=== PATIENT | female | born 1970 | race Caucasian/White ===

== ENCOUNTER 2016-10-09 18:42 | Emergency (ER) | payer MEDICAID ==
[2016-08-16 12:25] VITALS: BMI 61.2
[~2016-10-09 18:42] MED LIST: ADVAIR 250/501 DISK INH; CLEOCIN HCL150 MG PO; COMBIVENT INH14.7 GM INH; CYCLOBENZAPRINE10 MG PO; DALIRESP500 MCG PO; DIFLUCAN100 MG PO; DUONEB 2.5-0.5 M3 ML UPD; FLAGYL500 MG PO; HYDROCODONE-APA1 TAB PO; IPRAT-ALBUT 0.5-3 ML INH; LASIX20 MG PO; LEVAQUIN500 MG PO; LEVAQUIN750 MG PO; LIORESAL 10 MG10 MG PO; MUCINEX600 MG OR; MUCINEX600 MG PO; NICODERM C1 PATCH .1 TRANSDERM; NORCO 10/325 TA1 TA1 PO; NUCYNTA50 MG PO; PEPCID20 MG PO; PREDNISONE50 MG PO; PROVENTIL/2.5 MG/3 M INH; QUESTRAN PACK4 G/PKT PO; SINGULAIR10 MG PO; STERAPRED 5MG 125 MG PO; STERAPRED DS 1210 MG PO; XANAX0.5 MG; XANAX1 MG PO; ZESTRIL20 MG PO; ZITHROMAX500 MG PO; ZOFRAN ODT4 MG/UDTAB PO
[2016-10-09 19:35] LABS: BASOPHILS 0.3 % (0.0-2.0); HEMATOCRIT 41.3 % (36.0-48.0); HEMOGLOBIN 13.5 g/dL (12-16); IMMATURE GRANULOCYTES 0.5 % (0-5); LYMPHOCYTES 28.3 % (15-50); MCH 28.5 pg (26.0-34.0); MCHC 32.7 g/dL (31.0-37.0); MCV 87.3 fL (80.0-100.0); MONOCYTES 14.3 % (2-11); NEUTROPHILS 53.6 % (40-80); PLATELET COUNT 244 10x3/uL (130-400); RBC 4.73 10x6/uL (4.00-5.40); WBC 7.7 10x3/uL (4.8-10.8)
[2016-10-09 19:50] LABS: ALBUMIN 3.4 g/dL (3.4-5.0); ANION GAP 9.4 mmol/L (8-16); BILIRUBIN - TOTAL 0.22 mg/dL (0.2-1.3); CALCIUM 8.7 mg/dL (8.5-10.1); CARBON DIOXIDE 29.9 mmol/L (21.0-32.0); CREATININE - SERUM 0.9 mg/dL (0.6-1.3); POTASSIUM - SERUM 4.3 mmol/L (3.5-5.1); PROTEIN - SERUM 6.5 g/dL (6.4-8.2)
== END 2016-10-09 20:46 | disposition home or self-care (01) ==
LOC: D.ER 18:42
PROVIDERS: Emergency Medicine
DX: J44.1 Chronic obstructive pulmonary disease with (acute) exacerbation (principal)

== ENCOUNTER 2016-10-16 16:38 | Emergency (ER) | payer SELFPAY ==
[2016-08-16 12:25] VITALS: BMI 61.2
[2016-10-16 17:30] LABS: BASOPHILS 0.3 % (0.0-2.0); EOSINOPHILS 3.2 % (0-7); HEMATOCRIT 41.9 % (36.0-48.0); HEMOGLOBIN 13.7 g/dL (12-16); IMMATURE GRANULOCYTES 0.5 % (0-5); LYMPHOCYTES 23.7 % (15-50); MCH 28.7 pg (26.0-34.0); MCHC 32.7 g/dL (31.0-37.0); MCV 87.7 fL (80.0-100.0); MEAN PLATELET VOLUME 10.7 fL (7.4-10.4); MONOCYTES 10.8 % (2-11); NEUTROPHILS 61.5 % (40-80); PLATELET COUNT 226 10x3/uL (130-400); RBC 4.78 10x6/uL (4.00-5.40); RDW 15.4 % (11.5-14.5); WBC 11.5 10x3/uL (4.8-10.8)
[2016-10-16 18:10] LABS: ALBUMIN 3.2 g/dL (3.4-5.0); ALKALINE PHOSPHATASE 99 U/L (46-116); ALT (SGPT) 35 U/L (10-68); AMYLASE - SERUM 24 U/L (25-115); BILIRUBIN - TOTAL 0.28 mg/dL (0.2-1.3); CALC OSMOLALITY 280 mosm/kg (275-300); CALCIUM 8.4 mg/dL (8.5-10.1); CARBON DIOXIDE 27.7 mmol/L (21.0-32.0); CHLORIDE - SERUM 104 mmol/L (98-107); CREATININE - SERUM 0.8 mg/dL (0.6-1.3); GLUCOSE 91 mg/dL (74-106); LIPASE 132 U/L (73-393); POTASSIUM - SERUM 4.5 mmol/L (3.5-5.1); PROTEIN - SERUM 6.6 g/dL (6.4-8.2); SODIUM 140 mmol/L (136-145); UREA NITROGEN 18 mg/dL (7-18); eGFR NON AFRICAN AMERICAN 82 mL/min (90-120)
== END 2016-10-16 18:56 | disposition home or self-care (01) ==
LOC: D.ER 16:38
PROVIDERS: Emergency Medicine
DX: K52.9 Noninfective gastroenteritis and colitis, unspecified (principal); F17.200 Nicotine dependence, unspecified, uncomplicated; J44.9 Chronic obstructive pulmonary disease, unspecified

== ENCOUNTER 2016-10-17 23:29 | Emergency (ER) | payer MEDICAID ==
[2016-08-16 12:25] VITALS: BMI 61.2
[2016-10-18 00:34] LABS: APPEARANCE HAZY (CLEAR); COLOR YELLOW (YELLOW); LEUKOCYTE ESTERASE TRACE (NEGATIVE); NITRITE NEGATIVE (NEGATIVE); PH 5.5 (5.0-6.0)
[2016-10-18 00:35] LABS: BILIRUBIN NEGATIVE (NEGATIVE); GLUCOSE NEGATIVE (NEGATIVE); KETONE NEGATIVE (NEGATIVE); PROTEIN TRACE mg/dL (NEGATIVE); UROBILINOGEN NORMAL (NORMAL)
[2016-10-18 00:43] LABS: BACTERIA MANY /hpf (NONE SEEN); MUCUS <1+ /lpf (NONE SEEN); RED CELLS - URINE 0-5 /hpf (0-5)
[2016-10-18 01:03] LABS: UDS - AMPHET POSITIVE QUAL (NEGATIVE); UDS - BARB NEGATIVE QUAL (NEGATIVE); UDS - BENZO NEGATIVE QUAL (NEGATIVE); UDS - COCAINE NEGATIVE QUAL (NEGATIVE); UDS - METH NEGATIVE QUAL (NEGATIVE); UDS - OPIATE NEGATIVE QUAL (NEGATIVE); UDS - PCP NEGATIVE QUAL (NEGATIVE); UDS - THC POSITIVE QUAL (NEGATIVE)
== END 2016-10-18 01:13 | disposition home or self-care (01) ==
LOC: D.ER 23:29
PROVIDERS: Family Medicine
DX: K52.9 Noninfective gastroenteritis and colitis, unspecified (principal); J44.9 Chronic obstructive pulmonary disease, unspecified; F17.200 Nicotine dependence, unspecified, uncomplicated

== ENCOUNTER 2016-11-12 15:40 | Emergency (ER) | payer MEDICAID ==
[2016-08-16 12:25] VITALS: BMI 61.2
[2016-11-12 18:59] LABS: BASOPHILS 0.3 % (0.0-2.0); EOSINOPHILS 2.7 % (0-7); HEMATOCRIT 43.6 % (36.0-48.0); HEMOGLOBIN 14.1 g/dL (12-16); IMMATURE GRANULOCYTES 0.5 % (0-5); LYMPHOCYTES 27.8 % (15-50); MCH 28.3 pg (26.0-34.0); MCHC 32.3 g/dL (31.0-37.0); MCV 87.6 fL (80.0-100.0); MEAN PLATELET VOLUME 10.6 fL (7.4-10.4); MONOCYTES 13.6 % (2-11); NEUTROPHILS 55.1 % (40-80); PLATELET COUNT 261 10x3/uL (130-400); RBC 4.98 10x6/uL (4.00-5.40); RDW 16.1 % (11.5-14.5); WBC 10.3 10x3/uL (4.8-10.8)
[2016-11-12 19:24] LABS: ALBUMIN 3.7 g/dL (3.4-5.0); ALKALINE PHOSPHATASE 153 U/L (46-116); ALT (SGPT) 63 U/L (10-68); AMYLASE - SERUM 24 U/L (25-115); BILIRUBIN - TOTAL 0.25 mg/dL (0.2-1.3); CALC OSMOLALITY 271 mosm/kg (275-300); CALCIUM 9.2 mg/dL (8.5-10.1); CARBON DIOXIDE 27.2 mmol/L (21.0-32.0); CHLORIDE - SERUM 101 mmol/L (98-107); CREATININE - SERUM 0.6 mg/dL (0.6-1.3); GLUCOSE 89 mg/dL (74-106); LIPASE 109 U/L (73-393); POTASSIUM - SERUM 4.6 mmol/L (3.5-5.1); PROTEIN - SERUM 7.1 g/dL (6.4-8.2); SODIUM 136 mmol/L (136-145); UREA NITROGEN 16 mg/dL (7-18); eGFR NON AFRICAN AMERICAN > 90 mL/min (90-120)
== END 2016-11-12 20:36 | disposition home or self-care (01) ==
LOC: D.ER 15:40
PROVIDERS: Physician Assistant
DX: A08.4 Viral intestinal infection, unspecified (principal); J44.9 Chronic obstructive pulmonary disease, unspecified; K21.9 Gastro-esophageal reflux disease without esophagitis; I10 Essential (primary) hypertension; F17.200 Nicotine dependence, unspecified, uncomplicated

== ENCOUNTER 2017-02-15 11:20 | Emergency (ER) | payer MEDICAID ==
[2016-08-16 12:25] VITALS: BMI 61.2
== END 2017-02-15 15:43 | disposition home or self-care (01) ==
LOC: D.ER 11:20
DX: S82.302A Unspecified fracture of lower end of left tibia, initial encounter for closed fracture (principal); X58.XXXA Exposure to other specified factors, initial encounter; Y93.89 Activity, other specified; Y92.89 Other specified places as the place of occurrence of the external cause

== ENCOUNTER 2017-04-09 15:15 | Emergency (ER) | payer MEDICAID ==
[2016-08-16 12:25] VITALS: BMI 61.2
[2017-04-09 16:10] LABS: UDS - AMPHET POSITIVE QUAL (NEGATIVE); UDS - BARB NEGATIVE QUAL (NEGATIVE); UDS - BENZO NEGATIVE QUAL (NEGATIVE); UDS - COCAINE NEGATIVE QUAL (NEGATIVE); UDS - METH NEGATIVE QUAL (NEGATIVE); UDS - OPIATE NEGATIVE QUAL (NEGATIVE); UDS - PCP NEGATIVE QUAL (NEGATIVE); UDS - THC POSITIVE QUAL (NEGATIVE)
[2017-04-09 16:26] LABS: APPEARANCE HAZY (CLEAR); BILIRUBIN NEGATIVE (NEGATIVE); COLOR YELLOW (YELLOW); GLUCOSE NEGATIVE (NEGATIVE); KETONE NEGATIVE (NEGATIVE); LEUKOCYTE ESTERASE 2+ (NEGATIVE); NITRITE NEGATIVE (NEGATIVE); PROTEIN NEGATIVE (NEGATIVE); SPECIFIC GRAVITY 1.015 (1.005-1.020); UROBILINOGEN NORMAL (NORMAL)
[2017-04-09 16:27] LABS: RED CELLS - URINE 0-5 /hpf (0-5)
[2017-04-09 16:28] LABS: BACTERIA MODERATE /hpf (NONE SEEN)
== END 2017-04-09 15:35 | disposition home or self-care (01) ==
LOC: D.ER 15:15
PROVIDERS: Physician Assistant
DX: M54.5 Low back pain (principal); F17.200 Nicotine dependence, unspecified, uncomplicated

== ENCOUNTER 2017-06-02 19:29 | Emergency (ER) | payer MEDICAID ==
[2016-08-16 12:25] VITALS: BMI 61.2
== END 2017-06-02 21:06 | disposition home or self-care (01) ==
LOC: D.ER 19:29
DX: J06.9 Acute upper respiratory infection, unspecified (principal); J44.9 Chronic obstructive pulmonary disease, unspecified

== ENCOUNTER 2017-07-10 06:44 | Emergency (ER) | payer MEDICAID ==
[2016-08-16 12:25] VITALS: BMI 61.2
== END 2017-07-10 08:45 | disposition home or self-care (01) ==
LOC: D.ER 06:44
DX: S93.402A Sprain of unspecified ligament of left ankle, initial encounter (principal); X58.XXXA Exposure to other specified factors, initial encounter; Y93.89 Activity, other specified; Y92.029 Unspecified place in mobile home as the place of occurrence of the external cause; S39.012A Strain of muscle, fascia and tendon of lower back, initial encounter; J44.9 Chronic obstructive pulmonary disease, unspecified; F17.200 Nicotine dependence, unspecified, uncomplicated

== ENCOUNTER 2017-07-28 19:16 | Emergency (ER) | payer MEDICAID ==
[2016-08-16 12:25] VITALS: BMI 61.2
[2017-07-28 21:47] LABS: BASOPHILS 0.3 % (0-2); HEMATOCRIT 44.4 % (36.0-48.0); HEMOGLOBIN 14.7 g/dL (12-16); IMMATURE GRANULOCYTES 0.1 % (0-5); LYMPHOCYTES 27.6 % (15-50); MCH 29.5 pg (26.0-34.0); MCHC 33.1 g/dL (31.0-37.0); MEAN PLATELET VOLUME 10.4 fL (7.4-10.4); MONOCYTES 9.7 % (2-11); NEUTROPHILS 59.3 % (40-80); PLATELET COUNT 299 10x3/uL (130-400); RBC 4.99 10x6/uL (4.00-5.40); RDW 15.1 % (11.5-14.5)
[2017-07-28 22:22] LABS: ALBUMIN 3.7 g/dL (3.4-5.0); ANION GAP 12.2 mmol/L (8-16); BILIRUBIN - TOTAL 0.45 mg/dL (0.2-1.3); CALCIUM 9.3 mg/dL (8.5-10.1); CARBON DIOXIDE 29.2 mmol/L (21.0-32.0); POTASSIUM - SERUM 4.4 mmol/L (3.5-5.1)
== END 2017-07-28 23:12 | disposition home or self-care (01) ==
LOC: D.ER 19:16
PROVIDERS: Physician Assistant
DX: R51 Headache (principal); Z86.79 Personal history of other diseases of the circulatory system; J20.9 Acute bronchitis, unspecified; J44.1 Chronic obstructive pulmonary disease with (acute) exacerbation

== ENCOUNTER 2017-07-29 17:49 | Emergency (ER) | payer MEDICAID ==
[2016-08-16 12:25] VITALS: BMI 61.2
== END 2017-07-29 23:32 | disposition home or self-care (01) ==
LOC: D.ER 17:49
DX: G43.909 Migraine, unspecified, not intractable, without status migrainosus (principal)

== ENCOUNTER 2017-09-04 14:38 | Emergency (ER) | payer MEDICAID ==
[2016-08-16 12:25] VITALS: BMI 61.2
== END 2017-09-04 16:35 | disposition home or self-care (01) ==
LOC: D.ER 14:38
DX: J06.9 Acute upper respiratory infection, unspecified (principal); F17.200 Nicotine dependence, unspecified, uncomplicated; I10 Essential (primary) hypertension

== ENCOUNTER 2017-11-09 11:59 | Emergency (ER) | payer MEDICAID ==
[2016-08-16 12:25] VITALS: BMI 61.2
[2017-11-09 13:08] LABS: BASOPHILS 0.2 % (0-2); EOSINOPHILS 3.2 % (0-7); HEMATOCRIT 42.8 % (36.0-48.0); HEMOGLOBIN 13.8 g/dL (12-16); IMMATURE GRANULOCYTES 0.4 % (0-5); LYMPHOCYTES 21.4 % (15-50); MCH 28.8 pg (26.0-34.0); MCHC 32.2 g/dL (31.0-37.0); MCV 89.2 fL (80.0-100.0); MEAN PLATELET VOLUME 10.1 fL (7.4-10.4); MONOCYTES 12.8 % (2-11); PLATELET COUNT 248 10x3/uL (130-400); WBC 9.1 10x3/uL (4.8-10.8)
[2017-11-09 13:21] LABS: ALBUMIN 3.3 g/dL (3.4-5.0); ALKALINE PHOSPHATASE 113 U/L (46-116); ALT (SGPT) 38 U/L (10-68); BILIRUBIN - TOTAL 0.42 mg/dL (0.2-1.3); CALC OSMOLALITY 277 mosm/kg (275-300); CARBON DIOXIDE 30.1 mmol/L (21.0-32.0); CHLORIDE - SERUM 104 mmol/L (98-107); CREATININE - SERUM 0.7 mg/dL (0.6-1.3); GLUCOSE 94 mg/dL (74-106); POTASSIUM - SERUM 4.6 mmol/L (3.5-5.1); PROTEIN - SERUM 7.5 g/dL (6.4-8.2); SODIUM 139 mmol/L (136-145); UREA NITROGEN 13 mg/dL (7-18); eGFR NON AFRICAN AMERICAN > 90 mL/min (90-120)
== END 2017-11-09 14:33 | disposition home or self-care (01) ==
LOC: D.ER 11:59
PROVIDERS: Emergency Medicine
DX: J44.1 Chronic obstructive pulmonary disease with (acute) exacerbation (principal); F17.200 Nicotine dependence, unspecified, uncomplicated

== ENCOUNTER 2017-11-15 20:24 | Emergency (ER) | payer MEDICAID | END 2017-11-16 00:37 | disposition home or self-care (01) | LOC: D.ER 20:24 | DX: J44.1 Chronic obstructive pulmonary disease with (acute) exacerbation (principal); I10 Essential (primary) hypertension; F17.200 Nicotine dependence, unspecified, uncomplicated ==

== ENCOUNTER 2017-12-04 14:37 | Emergency (ER) | payer MEDICAID ==
[2016-08-16 12:25] VITALS: BMI 61.2
== END 2017-12-04 17:00 | disposition home or self-care (01) ==
LOC: D.ER 14:37
DX: S09.90XA Unspecified injury of head, initial encounter (principal); W19.XXXA Unspecified fall, initial encounter; Y93.89 Activity, other specified; Y92.89 Other specified places as the place of occurrence of the external cause; F17.200 Nicotine dependence, unspecified, uncomplicated

== ENCOUNTER 2017-12-14 21:39 | Emergency (ER) | payer MEDICAID ==
[2016-08-16 12:25] VITALS: BMI 61.2
== END 2017-12-15 01:18 | disposition home or self-care (01) ==
LOC: D.ER 21:39
DX: M54.5 Low back pain (principal); W18.2XXA Fall in (into) shower or empty bathtub, initial encounter; Y93.E1 Activity, personal bathing and showering; Y92.012 Bathroom of single-family (private) house as the place of occurrence of the external cause; J44.9 Chronic obstructive pulmonary disease, unspecified; I10 Essential (primary) hypertension; F17.200 Nicotine dependence, unspecified, uncomplicated

== ENCOUNTER 2017-12-26 15:29 | Emergency (ER) | payer MEDICAID ==
[2016-08-16 12:25] VITALS: BMI 61.2
[2017-12-26 16:25] LABS: PRO BNP 58 pg/mL (0-125)
[2017-12-26 16:29] LABS: TROPONIN-I < 0.017 ng/mL (0.000-0.060)
== END 2017-12-26 18:10 | disposition home or self-care (01) ==
LOC: D.ER 15:29
PROVIDERS: Emergency Medicine
DX: J44.1 Chronic obstructive pulmonary disease with (acute) exacerbation (principal); F17.200 Nicotine dependence, unspecified, uncomplicated

== ENCOUNTER 2018-01-06 22:04 | Inpatient (IN) | payer MEDICAID ==
[~2018-01-06] VITALS: Ht 157.5 cm; Wt 154.5 kg
[2018-01-06 22:59] LABS: BASOPHILS 0.3 % (0-2); EOSINOPHILS 3.2 % (0-7); HEMATOCRIT 41.2 % (36.0-48.0); HEMOGLOBIN 13.5 g/dL (12-16); IMMATURE GRANULOCYTES 0.3 % (0-5); LYMPHOCYTES 33.4 % (15-50); MCH 29.1 pg (26.0-34.0); MCHC 32.8 g/dL (31.0-37.0); MCV 88.8 fL (80.0-100.0); MEAN PLATELET VOLUME 10.3 fL (7.4-10.4); MONOCYTES 12.3 % (2-11); NEUTROPHILS 50.5 % (40-80); PLATELET COUNT 223 10x3/uL (130-400); RBC 4.64 10x6/uL (4.00-5.40); RDW 15.9 % (11.5-14.5); WBC 7.8 10x3/uL (4.8-10.8)
[2018-01-06 23:15] LABS: ALBUMIN 3.3 g/dL (3.4-5.0); ALKALINE PHOSPHATASE 104 U/L (46-116); ALT (SGPT) 64 U/L (10-68); BILIRUBIN - TOTAL 0.42 mg/dL (0.2-1.3); CALC OSMOLALITY 277 mosm/kg (275-300); CALCIUM 8.9 mg/dL (8.5-10.1); CARBON DIOXIDE 27.4 mmol/L (21.0-32.0); CHLORIDE - SERUM 103 mmol/L (98-107); CREATININE - SERUM 0.7 mg/dL (0.6-1.3); GLUCOSE 98 mg/dL (74-106); POTASSIUM - SERUM 4.4 mmol/L (3.5-5.1); PROTEIN - SERUM 7.4 g/dL (6.4-8.2); SODIUM 140 mmol/L (136-145); UREA NITROGEN 9 mg/dL (7-18); eGFR NON AFRICAN AMERICAN > 90 mL/min (90-120)
[2018-01-06 23:31] LABS: AMYLASE - SERUM 20 U/L (25-115); LIPASE 88 U/L (73-393)
[2018-01-07] VITALS (8 sets, daily range): BP systolic 123–162; BP diastolic 63–88; Ht 157.5 cm; Wt 154.5 kg
[2018-01-07 01:50] LABS: APPEARANCE CLOUDY (CLEAR); BILIRUBIN NEGATIVE (NEGATIVE); COLOR YELLOW (YELLOW); GLUCOSE NEGATIVE (NEGATIVE); KETONE NEGATIVE (NEGATIVE); NITRITE NEGATIVE (NEGATIVE); PROTEIN NEGATIVE (NEGATIVE); UROBILINOGEN NORMAL (NORMAL)
[2018-01-07 01:52] LABS: BACTERIA MANY /hpf (NONE SEEN); EPITHELIAL CELLS 0-5 /hpf (0-5); MUCUS <1+ /lpf (NONE SEEN); RED CELLS - URINE 0-5 /hpf (0-5)
[2018-01-07] MEDS ORDERED: AMITRIPTYLINE100 MG PO (02:52)
[2018-01-07] MEDS ORDERED: CELEXA40 MG PO (02:52)
[2018-01-07] MEDS ORDERED: PROVENTIL/2.5 MG/3 M INH (02:53)
[2018-01-07 14:13] LABS: UDS - AMPHET POSITIVE QUAL (NEGATIVE); UDS - BARB NEGATIVE QUAL (NEGATIVE); UDS - BENZO NEGATIVE QUAL (NEGATIVE); UDS - COCAINE NEGATIVE QUAL (NEGATIVE); UDS - OPIATE POSITIVE QUAL (NEGATIVE); UDS - PCP NEGATIVE QUAL (NEGATIVE); UDS - THC POSITIVE QUAL (NEGATIVE)
[2018-01-08 04:00] VITALS: BP 156/94
[2018-01-08 04:36] LABS: BASOPHILS 0.1 % (0-2); EOSINOPHILS 0 % (0-7); HEMATOCRIT 41.5 % (36.0-48.0); HEMOGLOBIN 13.3 g/dL (12-16); IMMATURE GRANULOCYTES 0.7 % (0-5); LYMPHOCYTES 7.9 % (15-50); MCH 28.8 pg (26.0-34.0); MCV 89.8 fL (80.0-100.0); MEAN PLATELET VOLUME 10.5 fL (7.4-10.4); MONOCYTES 2.3 % (2-11); RBC 4.62 10x6/uL (4.00-5.40); RDW 15.4 % (11.5-14.5)
[2018-01-08 04:50] LABS: PLATELET COUNT 268 10x3/uL (130-400); WBC 12.8 10x3/uL (4.8-10.8)
[2018-01-08 04:59] LABS: CALCIUM 9.1 mg/dL (8.5-10.1); CARBON DIOXIDE 28.9 mmol/L (21.0-32.0); CHLORIDE - SERUM 103 mmol/L (98-107); CREATININE - SERUM 0.8 mg/dL (0.6-1.3); MAGNESIUM - SERUM 2.3 mg/dL (1.8-2.4); POTASSIUM - SERUM 4.6 mmol/L (3.5-5.1); SODIUM 139 mmol/L (136-145); eGFR NON AFRICAN AMERICAN 81 mL/min (90-120)
[2018-01-08 05:00] LABS: CALC OSMOLALITY 282 mosm/kg (275-300); GLUCOSE 154 mg/dL (74-106); UREA NITROGEN 18 mg/dL (7-18)
[2018-01-08 08:41] VITALS: BP 134/60
[2018-01-08 11:46] VITALS: BP 135/75
[2018-01-08 16:11] VITALS: BP 133/77
[2018-01-08 16:59] LABS: CKMB 0.4 U/L (0.0-3.6); CREATINE KINASE 23 UL (21-215); TROPONIN-I < 0.017 ng/mL (0.000-0.060)
[2018-01-08 20:00] VITALS: BP 188/92
[2018-01-08 23:43] LABS: CREATINE KINASE 8 UL (21-215)
[2018-01-08 23:44] LABS: TROPONIN-I < 0.017 ng/mL (0.000-0.060)
[2018-01-09] VITALS: BP 127/53
[2018-01-09 04:00] VITALS: BP 163/70
[2018-01-09 05:06] LABS: CREATINE KINASE 11 UL (21-215)
[2018-01-09 05:12] LABS: TROPONIN-I < 0.017 ng/mL (0.000-0.060)
[2018-01-09 08:18] VITALS: BP 193/96
[2018-01-09] MEDS ORDERED: PROTONIX40 MG PO (09:46)
[2018-01-09] MEDS ORDERED: LEVAQUIN750 MG PO (09:46)
[2018-01-09] MEDS ORDERED: NICODERM C1 PATCH .1 TRANSDERM (09:46)
[2018-01-09] MEDS ORDERED: STERAPRED DS 1010 MG PO (09:47)
== END 2018-01-09 11:29 | disposition home or self-care (01) | DRG 189 ==
LOC: D.ER 22:04 → D.MS 01-07 01:15
PROVIDERS: Family Medicine; Internal Medicine Nephrology; Nurse Practitioner Family
DX: J96.21 Acute and chronic respiratory failure with hypoxia (principal); J44.1 Chronic obstructive pulmonary disease with (acute) exacerbation; Z68.44 Body mass index [BMI] 60.0-69.9, adult; F17.203 Nicotine dependence unspecified, with withdrawal; N39.0 Urinary tract infection, site not specified; I10 Essential (primary) hypertension; K21.9 Gastro-esophageal reflux disease without esophagitis; F20.9 Schizophrenia, unspecified; F31.9 Bipolar disorder, unspecified; F41.9 Anxiety disorder, unspecified; E66.01 Morbid (severe) obesity due to excess calories

== ENCOUNTER 2018-03-13 14:26 | Emergency (ER) | payer MEDICAID ==
[~2018-03-13] VITALS: Ht 157.5 cm; Wt 159.1 kg
[~2018-03-13 14:26] MED LIST changes: +AMITRIPTYLINE100 MG PO; +CELEXA40 MG PO; +PROTONIX40 MG PO; +STERAPRED DS 1010 MG PO
[2018-03-13 14:48] VITALS: Ht 157.5 cm; Wt 159.1 kg
[2018-03-13 17:29] VITALS: BP 150/71
== END 2018-03-13 17:13 | disposition home or self-care (01) ==
LOC: D.ER 14:26
DX: R51 Headache (principal); M54.12 Radiculopathy, cervical region; G43.909 Migraine, unspecified, not intractable, without status migrainosus; I10 Essential (primary) hypertension; J44.9 Chronic obstructive pulmonary disease, unspecified

== ENCOUNTER 2018-04-08 17:56 | Emergency (ER) | payer MEDICAID ==
[~2018-04-08] VITALS: Ht 157.5 cm; Wt 159.1 kg
[2018-04-08 18:00] VITALS: Ht 157.5 cm; Wt 159.1 kg
[2018-04-08] MEDS ORDERED: BUPROPION HCL150 M1 PO (18:03)
[2018-04-08] MEDS ORDERED: ALBUTEROL0.63 MG/3 INH (18:03)
[2018-04-08] MEDS ORDERED: DIFLUCAN100 MG PO (18:38)
[2018-04-08 18:44] LABS: BASOPHILS 0.2 % (0-2); EOSINOPHILS 2.4 % (0-7); HEMATOCRIT 40.4 % (36.0-48.0); HEMOGLOBIN 13.4 g/dL (12-16); IMMATURE GRANULOCYTES 0.4 % (0-5); LYMPHOCYTES 27.1 % (15-50); MCH 28.8 pg (26.0-34.0); MCHC 33.2 g/dL (31.0-37.0); MCV 86.7 fL (80.0-100.0); MEAN PLATELET VOLUME 10.2 fL (7.4-10.4); MONOCYTES 9.8 % (2-11); NEUTROPHILS 60.1 % (40-80); PLATELET COUNT 269 10x3/uL (130-400); RBC 4.66 10x6/uL (4.00-5.40); RDW 15.2 % (11.5-14.5); WBC 10.6 10x3/uL (4.8-10.8)
[2018-04-08 18:59] LABS: ALBUMIN 3.2 g/dL (3.4-5.0); ALKALINE PHOSPHATASE 96 U/L (46-116); ALT (SGPT) 31 U/L (10-68); BILIRUBIN - TOTAL 0.19 mg/dL (0.2-1.3); CALC OSMOLALITY 276 mosm/kg (275-300); CALCIUM 8.2 mg/dL (8.5-10.1); CARBON DIOXIDE 30.9 mmol/L (21.0-32.0); CHLORIDE - SERUM 106 mmol/L (98-107); CREATININE - SERUM 0.6 mg/dL (0.6-1.3); POTASSIUM - SERUM 4.2 mmol/L (3.5-5.1); PROTEIN - SERUM 7.1 g/dL (6.4-8.2); SODIUM 139 mmol/L (136-145); UREA NITROGEN 12 mg/dL (7-18); eGFR NON AFRICAN AMERICAN > 90 mL/min (90-120)
[2018-04-08 19:23] LABS: GLUCOSE 89 mg/dL (74-106)
[2018-04-09 02:27] VITALS: BP 138/79
== END 2018-04-08 20:37 | disposition home or self-care (01) ==
LOC: D.ER 17:56
PROVIDERS: Family Medicine
DX: J44.1 Chronic obstructive pulmonary disease with (acute) exacerbation (principal); I10 Essential (primary) hypertension; K21.9 Gastro-esophageal reflux disease without esophagitis; F17.200 Nicotine dependence, unspecified, uncomplicated

== ENCOUNTER 2018-05-06 02:59 | Inpatient (IN) | payer MEDICAID ==
[2018-05-06] VITALS (14 sets, daily range): BP systolic 132–188; BP diastolic 61–108
[~2018-05-06] VITALS: Ht 157.5 cm; Wt 147.4 kg
--- NOTE | ~2018-05-06 | EC ---
PATIENT:CLYDE CA DATE OF SERVICE: 05/06/18 SEX: F MEDICAL RECORD: [id number] DATE OF : [birth year] LOCATION:D. D.212 AGE OF PATIENT: 47 ADMISSION DATE: 05/06/18 REFERRING PHYSICIAN: INTERPRETING PHYSICIAN: CALDERON DOLAN MD ECHOCARDIOGRAM REPORT ECHO CHARGES 4 ECHO COMPLETE Date: 05/08 CLINICAL DIAGNOSIS: SOB ECHOCARDIOGRAPHIC MEASUREMENTS (adult normal given) AC root (d.<3.7cm) 2.8 cm LV Septum d (<1.2 cm> 1.5 cm Valve Excursion 0.9 cm LV Septum (systole) 2.0 cm Left Atria (s.<4.0cm> 4.2 cm LVPW d(<1.2cm) 1.0 cm RV (d.<2.3cm) 3.7 cm LVPW (sytole) 1.7 cm LV diastole(<5.6CM) 5.8 cm MV E-F(>70mm/sec) cm LV systole 4.5 cm LVOT Diameter 2.3 cm MV exc.(>10mm) cm Est.ejection fraction (50-75%) % DOPPLER: LVIT cm/sec A 89.0 cm/sec E 63.0 cm/sec LA cm/sec RVSP 22 mmHg LVOT 167 cm/sec AOP1/2T m/s Asc. Ao 213 cm/sec RVOT 95 cm/sec RA cm/sec PA 99 cm/sec AV Gradient Peak 18.14mmHg AV Mean 11.06mmHg AV Area 3.7 cm MV Gradient Peak 5.05 mmHg MV Mean 2.03 mmHg MV Area cm COMMENTS: Wash Oil Cooler Operator: Mark CHENG Frame Catcher: 1 Dr. Dolan TAPE# PACS Pericardial Effusion N DATE OF SERVICE: FINDINGS: 1. Left ventricular chamber size is within normal limits. Left ventricular systolic function is normal. Overall ejection fraction estimated at 60%. 2. Left atrium is enlarged at 4.2 cm. Right atrium and right ventricle chamber sizes are within normal limits. 3. Valvular structures have normal structure and motion. 4. Doppler interrogation only reveals trace tricuspid regurgitation, no other valvular insufficiency or stenosis and pulmonary systolic pressure is normal, ECHOCARDIOGRAM REPORT [id number] CLYDE CA estimated at 22 mmHg. 5. No evidence of pericardial effusion or left ventricular thrombus. TRANSINT:[id number] Voice Confirmation ID: [id number] DOCUMENT ID: [id number] CALDERON DOLAN MD at 1752 CC: [id number] DICTATION DATE: 05/08/18 1527 COAL CONVEYOR OPERATOR: 05/08/18 1748 DIS IN 05/13/18 [place] [id number] [place] [id number]
[~2018-05-06 02:59] MED LIST changes: +ALBUTEROL0.63 MG/3 INH; +BUPROPION HCL150 M1 PO
[2018-05-06 04:13] LABS: BASOPHILS 0.1 % (0-2); EOSINOPHILS 1.7 % (0-7); HEMATOCRIT 40.2 % (36.0-48.0); HEMOGLOBIN 13.2 g/dL (12-16); IMMATURE GRANULOCYTES 0.2 % (0-5); LYMPHOCYTES 27.7 % (15-50); MCH 28.3 pg (26.0-34.0); MCHC 32.8 g/dL (31.0-37.0); MCV 86.1 fL (80.0-100.0); MEAN PLATELET VOLUME 10.3 fL (7.4-10.4); MONOCYTES 13.7 % (2-11); NEUTROPHILS 56.6 % (40-80); PLATELET COUNT 237 10x3/uL (130-400); RBC 4.67 10x6/uL (4.00-5.40); RDW 15.7 % (11.5-14.5); WBC 8.4 10x3/uL (4.8-10.8)
[2018-05-06 04:29] LABS: ALBUMIN 3.6 g/dL (3.4-5.0); ALKALINE PHOSPHATASE 106 U/L (46-116); ALT (SGPT) 32 U/L (10-68); BILIRUBIN - TOTAL 0.72 mg/dL (0.2-1.3); CALC OSMOLALITY 278 mosm/kg (275-300); CALCIUM 8.4 mg/dL (8.5-10.1); CARBON DIOXIDE 30.3 mmol/L (21.0-32.0); CHLORIDE - SERUM 103 mmol/L (98-107); CREATININE - SERUM 0.7 mg/dL (0.6-1.3); GLUCOSE 99 mg/dL (74-106); POTASSIUM - SERUM 3.4 mmol/L (3.5-5.1); PROTEIN - SERUM 7.3 g/dL (6.4-8.2); SODIUM 139 mmol/L (136-145); UREA NITROGEN 16 mg/dL (7-18); eGFR NON AFRICAN AMERICAN > 90 mL/min (90-120)
[2018-05-06 04:40] LABS: CKMB 0.3 U/L (0.0-3.6); CREATINE KINASE 29 UL (21-215); PRO BNP 264 pg/mL (0-125); TROPONIN-I < 0.017 ng/mL (0.000-0.060)
[2018-05-06 10:58] LABS: CKMB 0.4 U/L (0.0-3.6); CREATINE KINASE 26 UL (21-215); TROPONIN-I < 0.017 ng/mL (0.000-0.060)
[2018-05-06 16:44] LABS: CKMB 0.3 U/L (0.0-3.6); CREATINE KINASE 47 UL (21-215); TROPONIN-I < 0.017 ng/mL (0.000-0.060)
[2018-05-06 23:50] LABS: CKMB 0.2 U/L (0.0-3.6); CREATINE KINASE 22 UL (21-215); TROPONIN-I < 0.017 ng/mL (0.000-0.060)
[2018-05-07 02:22] VITALS: BP 162/79; BMI 59.6
[2018-05-07 04:00] VITALS: BP 156/74
[2018-05-07 05:55] LABS: BASOPHILS 0 % (0-2); EOSINOPHILS 0 % (0-7); HEMATOCRIT 42.6 % (36.0-48.0); HEMOGLOBIN 13.9 g/dL (12-16); IMMATURE GRANULOCYTES 0.5 % (0-5); LYMPHOCYTES 9.6 % (15-50); MCH 28.3 pg (26.0-34.0); MCHC 32.6 g/dL (31.0-37.0); MCV 86.6 fL (80.0-100.0); MEAN PLATELET VOLUME 10.8 fL (7.4-10.4); MONOCYTES 2.1 % (2-11); NEUTROPHILS 87.8 % (40-80); PLATELET COUNT 269 10x3/uL (130-400); RBC 4.92 10x6/uL (4.00-5.40); RDW 15.3 % (11.5-14.5)
[2018-05-07 06:38] LABS: ALBUMIN 3.4 g/dL (3.4-5.0); ALKALINE PHOSPHATASE 106 U/L (46-116); ALT (SGPT) 32 U/L (10-68); BILIRUBIN - TOTAL 0.33 mg/dL (0.2-1.3); CALC OSMOLALITY 283 mosm/kg (275-300); CARBON DIOXIDE 30.3 mmol/L (21.0-32.0); CHLORIDE - SERUM 103 mmol/L (98-107); GLUCOSE 142 mg/dL (74-106); PROTEIN - SERUM 7.4 g/dL (6.4-8.2); SODIUM 141 mmol/L (136-145); UREA NITROGEN 15 mg/dL (7-18)
[2018-05-07 06:39] LABS: CREATININE - SERUM 0.5 mg/dL (0.6-1.3); POTASSIUM - SERUM 4.1 mmol/L (3.5-5.1); eGFR NON AFRICAN AMERICAN > 90 mL/min (90-120)
[2018-05-07 08:52] VITALS: BP 139/73
[2018-05-07 11:41] VITALS: BP 154/81
[2018-05-07 12:47] VITALS: Ht 157.5 cm; Wt 147.4 kg
[2018-05-07 15:31] VITALS: BP 143/74
[2018-05-07 20:00] VITALS: BP 163/82
[2018-05-08 06:11] VITALS: BP 156/83
[2018-05-08 08:27] VITALS: BP 156/96
[2018-05-08 11:33] VITALS: BP 154/75
[2018-05-08 16:14] VITALS: BP 138/86
[2018-05-08 21:27] VITALS: BP 134/74
[2018-05-09 02:05] VITALS: BP 139/69
[2018-05-09 04:00] VITALS: BP 146/79
[2018-05-09 07:15] LABS: BASOPHILS 0.1 % (0-2); EOSINOPHILS 0 % (0-7); HEMATOCRIT 42.7 % (36.0-48.0); HEMOGLOBIN 13.8 g/dL (12-16); IMMATURE GRANULOCYTES 1.3 % (0-5); LYMPHOCYTES 10.9 % (15-50); MCH 28.5 pg (26.0-34.0); MCHC 32.3 g/dL (31.0-37.0); MEAN PLATELET VOLUME 11.1 fL (7.4-10.4); NEUTROPHILS 84.7 % (40-80); PLATELET COUNT 263 10x3/uL (130-400); RBC 4.85 10x6/uL (4.00-5.40); RDW 15.8 % (11.5-14.5)
[2018-05-09 08:03] VITALS: BP 131/91
[2018-05-09 08:06] LABS: CALC OSMOLALITY 288 mosm/kg (275-300); CALCIUM 8.6 mg/dL (8.5-10.1); CHLORIDE - SERUM 103 mmol/L (98-107); CREATININE - SERUM 0.7 mg/dL (0.6-1.3); GLUCOSE 127 mg/dL (74-106); MAGNESIUM - SERUM 2.2 mg/dL (1.8-2.4); PHOSPHOROUS 3.2 mg/dL (2.5-4.9); POTASSIUM - SERUM 4.4 mmol/L (3.5-5.1); SODIUM 141 mmol/L (136-145); UREA NITROGEN 29 mg/dL (7-18); eGFR NON AFRICAN AMERICAN > 90 mL/min (90-120)
[2018-05-09 11:10] VITALS: BP 153/70
[2018-05-09 15:21] VITALS: BP 130/82
[2018-05-09 21:20] VITALS: BP 173/75
[2018-05-10 02:35] VITALS: BP 136/70
[2018-05-10 06:07] LABS: BASOPHILS 0.2 % (0-2); EOSINOPHILS 0 % (0-7); HEMATOCRIT 44.3 % (36.0-48.0); IMMATURE GRANULOCYTES 2.1 % (0-5); LYMPHOCYTES 16.1 % (15-50); MCH 26.1 pg (26.0-34.0); MCHC 29.3 g/dL (31.0-37.0); MEAN PLATELET VOLUME 12.4 fL (7.4-10.4); MONOCYTES 8.3 % (2-11); NEUTROPHILS 73.3 % (40-80); RBC 4.98 10x6/uL (4.00-5.40); RDW 16.2 % (11.5-14.5); WBC 12.5 10x3/uL (4.8-10.8)
[2018-05-10 06:15] LABS: PLATELET COUNT 167 10x3/uL (130-400)
[2018-05-10 06:28] LABS: CALC OSMOLALITY 278 mosm/kg (275-300); CALCIUM 8.3 mg/dL (8.5-10.1); CHLORIDE - SERUM 103 mmol/L (98-107); CREATININE - SERUM 0.6 mg/dL (0.6-1.3); GLUCOSE 102 mg/dL (74-106); POTASSIUM - SERUM 4.8 mmol/L (3.5-5.1); SODIUM 137 mmol/L (136-145); UREA NITROGEN 26 mg/dL (7-18); eGFR NON AFRICAN AMERICAN > 90 mL/min (90-120)
[2018-05-10 06:37] VITALS: BP 141/75
[2018-05-10 08:00] VITALS: BP 149/86
[2018-05-10 10:51] VITALS: BP 152/73
[2018-05-10 16:11] VITALS: BP 146/81
[2018-05-10 22:32] VITALS: BP 149/79
[2018-05-11 08:00] VITALS: BP 134/71
[2018-05-12 00:11] VITALS: BP 142/68
[2018-05-12 04:00] VITALS: BP 124/74
[2018-05-12 23:37] VITALS: BP 127/67
[2018-05-13 05:00] VITALS: BP 147/74
[2018-05-13] MEDS ORDERED: MUCINEX600 MG PO (07:26)
[2018-05-13] MEDS ORDERED: NORCO-5 PO (07:27)
[2018-05-13] MEDS ORDERED: XANAX1 MG PO (07:28)
[2018-05-13] MEDS ORDERED: WELLBUTRIN SR150 MG PO (07:33)
[2018-05-13 07:39] VITALS: BP 158/48
[2018-05-13] MEDS ORDERED: COZAAR50 MG PO (07:42)
== END 2018-05-13 11:04 | disposition home or self-care (01) | DRG 190 ==
LOC: D.ER 02:59 → D.EDHOLD 09:40 → D.M2 09:40
PROVIDERS: Family Medicine
DX: J44.1 Chronic obstructive pulmonary disease with (acute) exacerbation (principal); I50.31 Acute diastolic (congestive) heart failure; Z68.43 Body mass index [BMI] 50.0-59.9, adult; F31.30 Bipolar disorder, current episode depressed, mild or moderate severity, unspecified; I11.0 Hypertensive heart disease with heart failure; E66.01 Morbid (severe) obesity due to excess calories; K21.9 Gastro-esophageal reflux disease without esophagitis; Z72.0 Tobacco use; F41.8 Other specified anxiety disorders; F20.9 Schizophrenia, unspecified; M19.90 Unspecified osteoarthritis, unspecified site

== ENCOUNTER 2018-07-01 11:13 | Outpatient (CLI) | payer MEDICAID ==
[~2018-07-01] VITALS: Ht 157.5 cm; Wt 154.5 kg
--- NOTE | ~2018-07-01 | HEMODYNAMI ---
PATIENT:CLYDE CA MEDICAL RECORD: [id number] : 70 LOCATION:QUAN ADMISSION DATE: 07/01/18 Generatedon:07/01/201813:47 Patient name: CLYDE CA Patient #: [id number] SSN: : 1970 Date of study: 07/01/2018 Page: Of Hemodynamic Procedure Report Patient Data Patient Demographics Procedure consent was obtained First Name: CLYDE Gender: Female Last Name: ROBY : 1970 [facility] Initial: KEAGAN Age: 47 year(s) Patient #: [id number] Race: Unknown Additional ID: [id number] Contact details [address]: [address] [place] [address] State: [place] City: [place] Zip code: [address] Past Medical History Allergies Allergen Reaction Date Comments Reported Other allergy 07/01/2018 Aspirin, Codeine, PCN, Sulfa, Talwin Admission Admission Data Admission Date: 07/01/2018 Admission Time: 11:13 Admit Source: Other Lab Results Lab Result Date: 07/01/2018 Lab Result Time: 12:25 Biochemistry Name Units Result Min Max BUN mg/dl 16 --(---*)-- 7 18 Creatinine mg/dl 0.7 --(*---)-- 0.6 1.3 CBC Name Units Result Min Max Hematocrit % 41.4 -*(----)-- 42 54 Hemoglobin g/dl 13.9 --(*---)-- 13.5 17.5 Procedure Procedure Types Cath Procedure Diagnostic Procedure LHC LHC w/Coronaries Procedure Description Procedure Date Procedure Date: 07/01/2018 Procedure Start Time: 13:34 Procedure End Time: 13:45 Procedure Staff Name Function Beto Lee MD Performing Physician Milton Salamanca RT Monitor Shane Green RT Scrub Miguelito Anaya RN Nurse Francisoc Martinez RT Sheet Rock Hanger Procedure Data Cath Procedure Fluoroscopy Diagnostic fluoroscopy Total fluoroscopy Time: 2.7 time: 2.7 min min Diagnostic fluoroscopy Total fluoroscopy dose: dose: 380.73 mGy 380.73 mGy Contrast Material Contrast Material Type Amount (ml) Isovue 300 58 Entry Location Entry Primary Successful Side Size Upsize Upsize Entry Closure Osullivan ccessful Closure Location (Fr) 1 (Fr) 2 (Fr) Remarks Device Remarks Radial Right 6 Fr Mechanical artery Short Compression Estimated blood loss: 5 ml Diagnostic catheters Device Type Used For End Catheter Placement DIAGNOSTIC Rodney 110cm 5 Procedure Fr catheter ([id number]) DIAGNOSTIC AR MOD 5Fr Procedure Catheter ([id number]) Procedure Complications No complications Procedure Medications Medication Administration Route Dosage 0.9% NaCl I.V. 100 ml/hr Oxygen etCO2 Nasal cannula 2 l/min Heparin Flush Bag added to field 2 bags (1000units/500ml NS) Lidocaine 2% added to field 20 Radial Cocktail added to field 1 syringe (Verapomil 2mg/Nitro 400mcg/Heparin 1500units) Versed I.V. 2 mg Fentanyl I.V. 100 mcg Radial Cocktail I.A. 1 syringe (Verapomil 2mg/Nitro 400mcg/Heparin 1500units) Hemodynamics Rest HGB: 13.9 (g/dl) Heart Rate: 87 (bpm) Pressure Samples Time Site Value (mmHg) Purpose Heart Use Rate(bpm) 13:37 LV 129/10,16 Snapshot 94 13:37 AO 108/80(94) Pullback 93 Gradients Valve Time Site Site 2 Mean SEP/DFP Peak To Heart Use 1 (mmHg) (sec/min) Peak Rate (mmHg) (bpm) Aortic 13:37 LV AO 93 108/80(94) Snapshots Pre Cath Intra NCS Post Cath Vital Signs Time Heart Resp SPO2 etCO2 NIBP (mmHg) Rhythm Pain Sedation Rate (ipm) (%) (mmHg) Status Level (bpm) 13:18:04 81 18 94 33.9 171/96(146) NSR 0 (11) 10(A) , No pain 13:22:17 84 18 96 41.4 165/99(131) NSR 0 (11) 10(A) , No pain 13:26:40 85 14 98 31.6 157/93(117) NSR 0 (11) 10(A) , No pain 13:30:58 87 15 97 24.8 152/91(116) NSR 0 (11) 10(A) , No pain 13:35:16 87 18 98 29.4 163/88(123) NSR 0 (11) 10(A) , No pain 13:39:25 91 21 94 27.8 156/95(122) NSR 0 (11) 10(A) , No pain 13:43:44 87 19 98 34.6 152/99(125) NSR 0 (11) 10(A) , No pain Medications Time Medication Route Dose Verified Delivered Reason Notes Effectiveness by by 13:22:04 0.9% NaCl I.V. 100 Miguelito Miguelito Per ml/hr Lorigan Lorigan physician RN RN 13:22:14 Oxygen etCO2 2 l/min Miguelito Miguelito Per Nasal Lorigan Héctor physician cannula RN RN 13:22:25 Heparin Flush added 2 bags Miguelito Miguelito used for Bag to Lorigan Lorigan procedure (1000units/500ml field RN RN NS) 13:22:42 Lidocaine 2% added 20ml Miguelito Miguelito for local to vial Lorigan Lorigan anesthetic field LEON RN 13:22:52 Radial Cocktail added 1 Mgiuelito Miguelito used for (Verapomil to syringe Lorigan Lorigan procedure 2mg/Nitro field LEON RN 400mcg/Heparin 1500units) 13:33:49 Versed I.V. 2 mg Miguelito Miguelito for sedation Héctor Anaya RN RN 13:33:59 Fentanyl I.V. 100 mcg Miguelito Miguelito for sedation Héctor Anaya RN RN 13:35:22 Radial Cocktail I.A. 1 Miguelito Beto for (Verapomil syringe Lorigan Jesus vasodilation 2mg/Nitro CAROLYN LAMB 400mcg/Heparin 1500units) Procedure Log Time Note 12:42:51 Informed consent obtained and on chart 12:42:53 Admit Source: Other 12:43:10 Diagnostic Cath status Elective 12:43:31 H&P Date Dictated: 06/20/2018 Within 30 days and on chart., H&P Addendum completed by physician on day of procedure. (MUST COMPLETE FOR ALL OUTPATIENTS). 12:45:23 Francisco Martinez RT(R) sent for patient. Start room use. 12:45:24 Time tracking: Regular hours (M-F 7:00 - 5:00) 12:45:29 Plan of Care:Hemodynamics will remain stable., Cardiac rhythm will remain stable., Comfort level will be maintained., Respiratory function will remain adequate., Patient/ family verbilizes understanding of procedure., Procedure tolerated without complication., Recovers from procedure without complications.. 13:03:44 Patient received from Pre/Post Procedure Room to CCL 3 Alert and oriented. Tansferred to table in Supine position. 13:03:47 Warm blankets applied, and alireza hugger turned on for patient comfort. 13:03:48 Correct patient and procedure confirmed by team. 13:03:48 ECG and BP/O2 sat monitors applied to patient. 13:03:50 Pre-procedure instructions explained to patient. 13:03:50 Pre-op teaching completed and patient verbalized understanding. 13:03:51 Family in waiting room. 13:03:53 Patient NPO since Breakfast. 13:04:30 Patient allergic to Other allergyAspirin, Codeine, PCN, Sulfa, Talwin 13:12:13 Vital chart was started 13:22:04 0.9% NaCl 100 ml/hr I.V. was administered by Miguelito Anaya RN; Per physician; 13:22:14 Oxygen 2 l/min etCO2 Nasal cannula was administered by Miguelito Anaya RN; Per physician; 13:22:25 Heparin Flush Bag (1000units/500ml NS) 2 bags added to field was administered by Miguelito Anaya RN; used for procedure; 13:22:42 Lidocaine 2% 20ml vial added to field was administered by Miguelito Anaya RN; for local anesthetic; 13:22:52 Radial Cocktail (Verapomil 2mg/Nitro 400mcg/Heparin 1500units) 1 syringe added to field was administered by Miguelito Anaya RN; used for procedure; 13:27:05 Baseline sample Acquired. 13:27:09 Rhythm: sinus rhythm 13:27:10 Full Disclosure recording started 13:27:13 Is the patient allergic to Iodine/contrast media? No. 13:27:15 Is patient on blood thinner?No 13:27:26 Patient diabetic? No. 13:27:28 Previous problem with sedation/anesthesia? No ? 13:27:30 Snore? Yes 13:27:30 Sleep apnea? Yes 13:27:31 Deviated septum? No 13:27:32 Opens mouth fully? Yes 13:27:32 Sticks out tongue? Yes 13:27:35 Snore? Yes 13:27:42 Airway obstruction? Yes COPD 13:27:48 Dentures? Yes out 13:27:52 Pre procedure: right dorsailis pedis pulse 2+ Normal; easily identifiable; not easily obliterated 13:27:54 Modified Tyron's test Radial < 7 seconds 13:27:56 Patient pain scale 0/10 ?. 13:28:01 IV patent on arrival in Left upper arm with 0.9% NaCl at [facility]. 13:29:17 Lab Result : BUN 16 mg/dl 13:: Lab Result : Creatinine 0.7 mg/dl 13:: Lab Result : Hemoglobin 13.9 g/dl 13:: Lab Result : Hematocrit 41.4 % 13:29:21 Lab results completed and on chart. 13:29:24 Right Radial & Right Groin area was prepped with chlora-prep and draped in sterile fashion 13:29:25 Alarms reviewed by R. N. 13:29:25 Sharps counted by scrub and verified by R.N. 13:29:27 Use device set Radial Dx or PCI 13:29:28 ACIST Syringe (61973) opened to sterile field. 13:29:29 Medline Cath Pack ([id number]) opened to sterile field. 13:29:30 Bag Decanter (2002) opened to sterile field. 13:29:30 ACIST Hand Control (87718) opened to sterile field. 13:29:31 ACIST Manifold (20244) opened to sterile field. 13:29:31 Tegaderm 4 x 4 (1626W) opened to sterile field. 13:29:32 MBrace Wrist Support ([id number]) opened to sterile field. 13:29:34 SHEATH 6Fr Prelude Radial ([id number]) opened to sterile field. 13:29:35 DIAGNOSTIC WIRE .035 260cm J wire (518203) opened to sterile field. 13:29:45 Physician arrived 13:29:46 --------ALL STOP TIME OUT------ 13:29:46 Final Timeout: patient, procedure, and site verified with staff and physician. All members of the team are in agreement. 13:29:47 Right Radial & Right Groin site verified by team. 13:29:50 Physical assessment completed. ASA score P 3 - A patient with severe systemic disease as per Beto Lee MD. 13:31:22 Sedation plan: IV Moderate Sedation Medication:Versed, Fentanyl 13:33:49 Versed 2 mg I.V. was administered by Miguelito Anaya RN; for sedation; 13:33:59 Fentanyl 100 mcg I.V. was administered by Miguelito Anaya RN; for sedation; 13:34:48 Procedure started. 13:34:54 Local anesthetic to right radial artery with Lidocaine 2% by Beto Lee MD.INITIAL ACCESS ONLY 13:35:12 A 6 Fr Short sheath was inserted into the Right Radial artery 13:35:15 Zero performed for pressure channel P1 13:35:22 Radial Cocktail (Verapomil 2mg/Nitro 400mcg/Heparin 1500units) 1 syringe I.A. was administered by Beto Lee MD; for vasodilation; 13:36:22 A DIAGNOSTIC Rodney 110cm 5 Fr catheter ([id number]) was advanced over the wire and used for Procedure. 13:37:15 LV gram done using MARTÍNEZ 13:37:17 Injector settings: Ml/sec: 7, Volume: 15, 13:37:19 LV hemodynamics recorded. 13:37:26 EF : 50 % 13:38:33 LCA angiography performed. 13:40:09 Catheter exchanged over wire. 13:40:22 A DIAGNOSTIC AR MOD 5Fr Catheter ([id number]) was advanced over the wire and used for Procedure. 13:41:47 RCA angiography performed. 13:41:54 Catheter removed. 13:42:18 TR BAND Large ([id number]) opened to sterile field. 13:42:33 Sheath removed intact; hemostasis achieved with Mechanical Compression to the Right Radial artery. 13:42:36 Procedure ended.(Physican Out) 13:42:58 Fluoroscopy time 02.70 minutes. 13:43:51 Flurop Dose total: 380.73 13:43:51 Fluoroscopy dose: 380.73 mGy 13:43:55 Contrast amount:Isovue 300 58ml. 13:43:56 Sharps counted by scrub and verified by R.N. 13:44:28 TR band inflated with 12cc of air. 13:44:30 Insertion/operative site no bleeding no hematoma. 13:44:43 Post right radial artery:stable, soft, clean and dry 13:44:45 Post Procedure Pulses reassessed and unchanged 13:45:05 Post-procedure physical assessment completed. ASA score P 3 - A patient with severe systemic disease as per Beto Lee MD. 13:45:07 Post procedure rhythm: unchanged. 13:45:09 Estimated blood loss: 5 ml 13:45:10 Post procedure instruction explained to patient.Patient verbalizes understanding. 13:45:11 Patient needs reinforcement of post procedure teaching. 13:45:40 Procedure and supply charges have been captured, reviewed, submitted and are correct. 13:45:42 Procedure Complication : No complications 13:45:44 Vital chart was stopped 13:45:44 See physician's report for complete and final results. 13:45:45 Report given to Pre/Post Procedure Room. 13:45:48 Patient transfered to Pre/Post Procedure Room with Stretcher. 13:45:51 Procedure ended. 13:45:51 Full Disclosure recording stopped 13:45:55 End room use (Document Last) Device Usage Item Name Manufacture Quantity Catalog Number Hospital Part Current M inimal Lot# / Charge Number Stock Stock Serial# Code ACIST Syringe Acist 1 85542 670370 077865 455072 2 0 (72660) [employer] Inc Medline Cath Cardinal 1 [id number] 680148 84067 462094 5 Pack Health ([id number]) Bag Decanter Microtek 1 2001S 006751 61922 069461 5 (2001S) Medical Inc. ACIST Hand Acist 1 40299 502775 469136 619286 5 Control (04762) [employer] Inc ACIST Manifold Acist 1 90118 308948 335572 568705 5 (84958) Medical Systems Inc Tegaderm 4 x 4 3M 1 1626W 096048 821756 532818 5 (1626W) MBrace Wrist Advanced 1 140-0250-00 333067 84728 012327 5 Support Vascular ([id number]) Dynamics SHEATH 6Fr Merit 1 [id number] 186394 006833 623861 5 Prelude Radial Medical ([id number]) DIAGNOSTIC WIRE [facility] 1 364484 949747 152256 599921 3 0 .035 260cm J wire (034963) DIAGNOSTIC Terumo 1 97-2088 218583 865488 877603 5 Rodney 110cm 5 Fr catheter (474346) DIAGNOSTIC AR Cardinal 1 [id number] 621480 535180 690392 1 5 MOD 5Fr Health Catheter ([id number]) TR BAND Large Terumo 1 [id number] 528951 334120 573405 4 0 ([id number]) Signature Audit Tyler Stage Time Signature Unsigned Intra-Procedure 07/01/2018 Milton Salamanca 1:47:24 PM RT(R) Signatures Monitor : Milton Salamanca RT Signature : Date : Time : [address] [address]
--- NOTE | ~2018-07-01 | OP ---
PATIENT NAME: CLYDE CA MEDICAL RECORD: [id number] :70 LOCATION:D.CAT ADMISSION DATE: SURGEON: CHARLEY BROCK MD DATE OF OPERATION: 07/01/2018 PROCEDURE: Left heart catheterization, selective coronary angiography, right radial approach. CATHETERS: Radial sheath, Mineral catheter. The procedure was well tolerated. The patient returned to the valera, sheath removed. TR band was placed. FINDINGS: Left ventriculography in 30-degree MARTÍNEZ view: Normal wall motion and normal systolic function. CORONARY ANATOMY: LEFT MAIN: Left main is free of disease. LAD: Free of disease in the diagonal system. CIRCUMFLEX: Free of disease in the marginal system. RIGHT CORONARY ARTERY: Dominant artery, gives rise to PDA, free of disease. IMPRESSION: Normal LV systolic function, normal coronary anatomy. TRANSINT:[id number] Voice Confirmation ID: [id number] DOCUMENT ID: [id number] CHARLEY BROCK MD at 1305 CC: [id number] DICTATION DATE: 07/01/18 1348 TROUBLE LOCATOR TEST DESK: 07/01/18 1436 DEP CLI 07/01/18 [place] [id number] [place] [address]
[~2018-07-01 11:13] MED LIST changes: +COZAAR50 MG PO; +NORCO-5 PO; +WELLBUTRIN SR150 MG PO
[2018-07-01] MEDS ORDERED: POTASSIUM (12:07)
[2018-07-01] MEDS ORDERED: LISINOPRIL5 MG PO (12:08)
[2018-07-01 12:12] VITALS: BP 140/74; Ht 157.5 cm; Wt 154.5 kg
[2018-07-01 12:49] LABS: BASOPHILS 0.2 % (0-2); EOSINOPHILS 1.9 % (0-7); HEMATOCRIT 41.4 % (36.0-48.0); HEMOGLOBIN 13.9 g/dL (12-16); IMMATURE GRANULOCYTES 0.3 % (0-5); LYMPHOCYTES 24.1 % (15-50); MCH 29.3 pg (26.0-34.0); MCHC 33.6 g/dL (31.0-37.0); MCV 87.3 fL (80.0-100.0); MEAN PLATELET VOLUME 11.1 fL (7.4-10.4); MONOCYTES 9.9 % (2-11); NEUTROPHILS 63.6 % (40-80); RBC 4.74 10x6/uL (4.00-5.40); RDW 15.9 % (11.5-14.5); WBC 9.9 10x3/uL (4.8-10.8)
[2018-07-01 12:55] LABS: PLATELET COUNT 256 10x3/uL (130-400)
[2018-07-01 13:05] LABS: CALC OSMOLALITY 272 mosm/kg (275-300); CARBON DIOXIDE 30.1 mmol/L (21.0-32.0); CHLORIDE - SERUM 101 mmol/L (98-107); CREATININE - SERUM 0.7 mg/dL (0.6-1.3); GLUCOSE 94 mg/dL (74-106); SODIUM 136 mmol/L (136-145); UREA NITROGEN 16 mg/dL (7-18); eGFR NON AFRICAN AMERICAN > 90 mL/min (90-120)
[2018-07-01 13:09] LABS: POTASSIUM - SERUM 4.5 mmol/L (3.5-5.1)
== END 2018-07-01 15:57 | disposition home or self-care (01) ==
LOC: D.CATH 11:13
PROVIDERS: Internal Medicine Interventional Cardiology
DX: I20.9 Angina pectoris, unspecified (principal); Z01.812 Encounter for preprocedural laboratory examination

== ENCOUNTER 2020-03-05 23:39 | Emergency (ER) | payer MEDICAID ==
[~2020-03-05] VITALS: Ht 157.5 cm; Wt 158.8 kg
[~2020-03-05 23:39] MED LIST changes: +LISINOPRIL5 MG PO; +POTASSIUM
[2020-03-05 23:48] VITALS: Ht 157.5 cm; Wt 158.8 kg
[2020-03-05 23:53] LABS: BASOPHILS 0.3 % (0-2); EOSINOPHILS 3.4 % (0-7); HEMATOCRIT 41.6 % (36.0-48.0); HEMOGLOBIN 13.2 g/dL (12-16); IMMATURE GRANULOCYTES 0.5 % (0-5); LYMPHOCYTES 26.4 % (15-50); MCHC 31.7 g/dL (31.0-37.0); MCV 88.1 fL (80.0-100.0); MEAN PLATELET VOLUME 9.8 fL (7.4-10.4); MONOCYTES 9.4 % (2-11); PLATELET COUNT 258 10x3/uL (130-400); RBC 4.72 10x6/uL (4.00-5.40); RDW 16.3 % (11.5-14.5)
[2020-03-06 00:02] LABS: INR 1.43 (0.85-1.17); PROTIME 17.3 SECONDS (11.6-15.0)
[2020-03-06 00:03] LABS: APTT 84.1 SECONDS (22.8-39.4)
[2020-03-06 00:09] LABS: CALC OSMOLALITY 275 mosm/kg (275-300); CARBON DIOXIDE 28.6 mmol/L (21.0-32.0); CHLORIDE - SERUM 104 mmol/L (98-107); CREATININE - SERUM 0.7 mg/dL (0.6-1.3); GLUCOSE 125 mg/dL (74-106); POTASSIUM - SERUM 4.2 mmol/L (3.5-5.1); SODIUM 137 mmol/L (136-145); UREA NITROGEN 14 mg/dL (7-18); eGFR NON AFRICAN AMERICAN > 90 mL/min (90-120)
[2020-03-06 00:20] LABS: ALBUMIN 3.2 g/dL (3.4-5.0); ALKALINE PHOSPHATASE 108 U/L (30-120); ALT (SGPT) 30 U/L (10-68); CKMB 0.4 U/L (0.0-3.6); CREATINE KINASE 24 UL (21-215); PRO BNP 234 pg/mL (0-125); PROTEIN - SERUM 7.2 g/dL (6.4-8.2); TROPONIN-I < 0.017 ng/mL (0.000-0.060)
[2020-03-06] MEDS ORDERED: ZPAK PO (00:37)
[2020-03-06] MEDS ORDERED: OLOPATADINE HCL5 ML RIGHT EYE (00:37)
[2020-03-06 01:12] VITALS: BP 181/76
== END 2020-03-06 01:13 | disposition home or self-care (01) ==
LOC: D.ER 23:39
PROVIDERS: Surgery
DX: J44.1 Chronic obstructive pulmonary disease with (acute) exacerbation (principal); H10.10 Acute atopic conjunctivitis, unspecified eye; J06.9 Acute upper respiratory infection, unspecified; I10 Essential (primary) hypertension; Z72.0 Tobacco use; K21.9 Gastro-esophageal reflux disease without esophagitis; R06.02 Shortness of breath

== ENCOUNTER 2020-03-09 14:44 | Emergency (ER) | payer MEDICAID ==
[~2020-03-09] VITALS: Ht 157.5 cm; Wt 163.6 kg
[~2020-03-09 14:44] MED LIST changes: +OLOPATADINE HCL5 ML RIGHT EYE; +ZPAK PO
[2020-03-09 14:47] VITALS: Ht 157.5 cm; Wt 163.6 kg
[2020-03-09 16:11] LABS: BASOPHILS 0.2 % (0-2); EOSINOPHILS 3.3 % (0-7); HEMATOCRIT 43.2 % (36.0-48.0); HEMOGLOBIN 13.6 g/dL (12-16); IMMATURE GRANULOCYTES 0.5 % (0-5); LYMPHOCYTES 24.9 % (15-50); MCHC 31.5 g/dL (31.0-37.0); MCV 89.1 fL (80.0-100.0); MEAN PLATELET VOLUME 9.7 fL (7.4-10.4); MONOCYTES 11.1 % (2-11); PLATELET COUNT 264 10x3/uL (130-400); RBC 4.85 10x6/uL (4.00-5.40); RDW 16.3 % (11.5-14.5); WBC 8.8 10x3/uL (4.8-10.8)
[2020-03-09 16:33] LABS: CALC OSMOLALITY 274 mosm/kg (275-300); CARBON DIOXIDE 31.6 mmol/L (21.0-32.0); CHLORIDE - SERUM 103 mmol/L (98-107); CREATININE - SERUM 0.6 mg/dL (0.6-1.3); GLUCOSE 100 mg/dL (74-106); POTASSIUM - SERUM 4.2 mmol/L (3.5-5.1); SODIUM 138 mmol/L (136-145); UREA NITROGEN 11 mg/dL (7-18); eGFR NON AFRICAN AMERICAN > 90 mL/min (90-120)
[2020-03-09 16:47] LABS: MONO NEGATIVE (NEGATIVE)
[2020-03-09 17:05] LABS: ALBUMIN 3.2 g/dL (3.4-5.0); BILIRUBIN - DIRECT 0.14 mg/dL (0.00-0.30); BILIRUBIN - INDIRECT 0.37 mg/dL (0.00-1.00); BILIRUBIN - TOTAL 0.51 mg/dL (0.2-1.3); PROTEIN - SERUM 7.2 g/dL (6.4-8.2)
[2020-03-09 20:08] VITALS: BP 136/84
[2020-03-11 12:10] LABS: EBV VIRAL CAPSID AB IGG >600.0 U/mL (0.0-17.9); EBV VIRAL CAPSID AB IGM <36.0 U/mL (0.0-35.9)
== END 2020-03-09 20:09 | disposition home or self-care (01) ==
LOC: D.ER 14:44
PROVIDERS: Emergency Medicine
DX: J04.0 Acute laryngitis (principal); J39.2 Other diseases of pharynx; R07.0 Pain in throat; B37.0 Candidal stomatitis; B37.81 Candidal esophagitis; I10 Essential (primary) hypertension; J44.9 Chronic obstructive pulmonary disease, unspecified; K21.9 Gastro-esophageal reflux disease without esophagitis; Z72.0 Tobacco use

== ENCOUNTER 2020-03-16 16:08 | Emergency (ER) | payer MEDICAID ==
[~2020-03-16] VITALS: Ht 157.5 cm; Wt 159.1 kg
[2020-03-16 16:26] VITALS: Ht 157.5 cm; Wt 159.1 kg
[2020-03-16 17:50] LABS: BASOPHILS 0.2 % (0-2); EOSINOPHILS 3.6 % (0-7); HEMATOCRIT 40.2 % (36.0-48.0); HEMOGLOBIN 12.9 g/dL (12-16); IMMATURE GRANULOCYTES 0.7 % (0-5); LYMPHOCYTES 27.2 % (15-50); MCH 28.4 pg (26.0-34.0); MCHC 32.1 g/dL (31.0-37.0); MCV 88.4 fL (80.0-100.0); MEAN PLATELET VOLUME 11.3 fL (7.4-10.4); MONOCYTES 10.8 % (2-11); NEUTROPHILS 57.5 % (40-80); PLATELET COUNT 287 10x3/uL (130-400); RBC 4.55 10x6/uL (4.00-5.40); RDW 16.6 % (11.5-14.5); WBC 8.1 10x3/uL (4.8-10.8)
[2020-03-16 18:07] LABS: APTT 23.3 SECONDS (22.8-39.4); INR 0.9 (0.85-1.17); PROTIME 12.1 SECONDS (11.6-15.0)
[2020-03-16 18:57] LABS: CALC OSMOLALITY 271 mosm/kg (275-300); CALCIUM 8.8 mg/dL (8.5-10.1); CARBON DIOXIDE 30.4 mmol/L (21.0-32.0); CHLORIDE - SERUM 103 mmol/L (98-107); CREATININE - SERUM 0.6 mg/dL (0.6-1.3); GLUCOSE 97 mg/dL (74-106); POTASSIUM - SERUM 4.5 mmol/L (3.5-5.1); SODIUM 136 mmol/L (136-145); UREA NITROGEN 12 mg/dL (7-18); eGFR NON AFRICAN AMERICAN > 90 mL/min (90-120)
[2020-03-16] MEDS ORDERED: PREDNISOLO15 MG/5 M2 PO (19:03)
[2020-03-16] MEDS ORDERED: HYDROCODON-ACET15 ML PO (19:11)
[2020-03-16 19:13] LABS: ALBUMIN 3.2 g/dL (3.4-5.0); ALKALINE PHOSPHATASE 109 U/L (30-120); ALT (SGPT) 35 U/L (10-68); BILIRUBIN - TOTAL 0.41 mg/dL (0.2-1.3); CKMB 0.2 U/L (0.0-3.6); CREATINE KINASE 17 UL (21-215); PRO BNP 300 pg/mL (0-125); PROTEIN - SERUM 6.7 g/dL (6.4-8.2); TROPONIN-I < 0.017 ng/mL (0.000-0.060)
[2020-03-16 20:06] VITALS: BP 136/74
== END 2020-03-16 20:06 | disposition home or self-care (01) ==
LOC: D.ER 16:08
PROVIDERS: Family Medicine
DX: B27.90 Infectious mononucleosis, unspecified without complication (principal); J44.1 Chronic obstructive pulmonary disease with (acute) exacerbation; Z91.14 Patient's other noncompliance with medication regimen; Z20.828 Contact with and (suspected) exposure to other viral communicable diseases; I10 Essential (primary) hypertension; Z72.0 Tobacco use; K21.9 Gastro-esophageal reflux disease without esophagitis; Z99.81 Dependence on supplemental oxygen

== ENCOUNTER 2020-07-02 13:35 | Emergency (ER) | payer MEDICAID ==
[~2020-07-02 13:35] MED LIST changes: +HYDROCODON-ACET15 ML PO; +PREDNISOLO15 MG/5 M2 PO
[2020-07-02 13:43] VITALS: Ht 157.5 cm
[2020-07-02] MEDS ORDERED: CLINDAMYCIN HC300 MG PO (15:22)
[2020-07-02 16:11] VITALS: BP 112/60
== END 2020-07-02 16:13 | disposition home or self-care (01) ==
LOC: D.ER 13:35
DX: N61.0 Mastitis without abscess (principal); I10 Essential (primary) hypertension; J45.909 Unspecified asthma, uncomplicated

== ENCOUNTER 2021-02-09 16:12 | Emergency (ER) | payer MEDICAID ==
[~2021-02-09] VITALS: Ht 157.5 cm; Wt 181.8 kg
[~2021-02-09 16:12] MED LIST changes: +CLINDAMYCIN HC300 MG PO; +LASIX80 MG PO
[2021-02-09 16:15] VITALS: BP 154/82; Ht 157.5 cm; Wt 181.8 kg
[2021-02-09] MEDS ORDERED: LISINOPRIL20 MG PO (16:25)
[2021-02-09] MEDS ORDERED: TENORMIN50 MG PO (16:25)
[2021-02-09 16:39] LABS: BILIRUBIN NEGATIVE (NEGATIVE); KETONE NEGATIVE (NEGATIVE); NITRITE NEGATIVE (NEGATIVE); UROBILINOGEN NORMAL mg/dL (< 2)
[2021-02-09 16:42] LABS: WHITE CELLS - URINE 0-5 HPF (0-4)
[2021-02-09 16:43] LABS: BACTERIA MOD HPF (NONE SEEN)
[2021-02-09] MEDS ORDERED: DIFLUCAN150 MG PO (18:43)
[2021-02-09] MEDS ORDERED: MACROBID100 MG PO (18:44)
== END 2021-02-09 18:56 | disposition home or self-care (01) ==
LOC: D.ER 16:12
PROVIDERS: Family Medicine
DX: N39.0 Urinary tract infection, site not specified (principal); B37.9 Candidiasis, unspecified; E66.09 Other obesity due to excess calories; I50.9 Heart failure, unspecified; K21.9 Gastro-esophageal reflux disease without esophagitis